=== PATIENT | male | born 1965 | race Caucasian/White ===

== ENCOUNTER → 2018-11-30 18:33 | Outpatient (CLI) | payer BC, SELFPAY ==
--- NOTE | 2018-11-30 | DI.MRI.S_ITS ---
PROCEDURE: MR KNEE LT WO CON INDICATIONS: PAIN IN LEFT KNEE TECHNIQUE: Noncontrast sagittal PD fast spin echo and T2 fast spin echo with fat saturation, sagittal 3-D FLASH with fat saturation; coronal T1 spin echo and PD fast spin echo with fat saturation, and axial PD fast spin echo with fat saturation through the knee. COMPARISON: None. FINDINGS: Image quality: Excellent. Menisci: The medial extrusion of the medial meniscus is present. Amorphous high signal intensity within the medial meniscal body and posterior horn is present, demonstrating superior and inferior articular surface extension, indicating degenerative tearing. Lateral meniscus demonstrates linear oblique high T2 signal intensity within its posterior horn, demonstrating inferior articular surface extension, indicating oblique tearing. Cruciate ligaments: The anterior cruciate ligament graft demonstrates full-thickness tearing. There is moderate T2 signal elevation within the mid and inferior posterior cruciate ligament, which demonstrates moderate thickening. Medial structures: The medial collateral ligament appears intact. Visualized portions of the pes anserinus tendons appear normal. No abnormal bursal fluid. Lateral structures: The lateral collateral ligament, long and short heads of the biceps femoris tendon appear intact. The popliteus tendon appears normal. Iliotibial band appears normal. Anterior structures: The quadriceps and patellar tendons appear intact. Patellar alignment is normal. No femoral trochlear dysplasia or ventral trochlear prominence. There is moderate edema in the infrapatellar fat pad. Bones and cartilage: No bone marrow contusions nor acute fracture. There is fragmentation of the anterior tibial tubercle. Moderate tricompartmental periarticular osteophyte formation. Surgical ligament anchors within the distal femur and proximal tibia are present. There is mild subchondral marrow edema within the weightbearing aspects of the medial femoral condyle and medial tibial plateau. There is severe diffuse articular cartilage loss overlying the weightbearing aspects of the medial femoral condyle and medial tibial plateau. Mild diffuse articular cartilage loss overlies the weightbearing aspect of the lateral femoral condyle and lateral tibial plateau. There is small knee joint effusion and a trace Arteaga's cyst. There is a 12 mm diameter intra-articular loose body within the anterior central aspect of the knee joint. A few smaller scattered intra-articular loose bodies are present. Joint space: There is physiologic knee joint fluid. No Arteaga's cyst. Normal appearing synovial plicae are incidentally noted. IMPRESSION: 1. Ruptured ACL graft. 2. Tricompartmental osteoarthritis with associated articular cartilage loss. 3. Partial-thickness posterior cruciate ligament tear. 4. Knee joint effusion and intra-articular loose bodies. 5. Medial and lateral meniscal tearing. 6. Remote Salma-Schlatter disease. Dictated by: Celestino Young M.D. on 12/01/2018 at 8:54 Approved by: Celestino Young M.D. on 12/01/2018 at 9:18
== END ==
PROVIDERS: Visit Provider Student in an Organized Health Care Education/Training Program
DX: T84.410A Breakdown (mechanical) of muscle and tendon graft, initial encounter (principal); S83.522A Sprain of posterior cruciate ligament of left knee, initial encounter; S83.282A Other tear of lateral meniscus, current injury, left knee, initial encounter; S83.242A Other tear of medial meniscus, current injury, left knee, initial encounter; M25.562 Pain in left knee; M17.12 Unilateral primary osteoarthritis, left knee; M25.462 Effusion, left knee
CPT/HCPCS: 73721

== ENCOUNTER 2020-01-11 12:19 | Emergency (ER) | payer OTHER, BC, SELFPAY ==
[2020-01-11 12:25] VITALS: BP 160/84; PULSE 97; RESP 15; TEMP 36.4; O2SAT 97; BMI 25.1
--- NOTE | 2020-01-11 12:31 | DI.US.S_ITS ---
PROCEDURE: US PERIPH VENOUS LOW EXTREM RT INDICATIONS: RULE OUT DVT TECHNIQUE: Real-time imaging, as well as color and pulse Doppler interrogation, were performed of the lower extremity deep veins from the inguinal ligament to the popliteal fossa. COMPARISON: None. FINDINGS: The common femoral, femoral and popliteal veins are normally compressible, and free of intraluminal thrombus. Color and pulse Doppler demonstrate normal phasic intraluminal flow. There is normal augmentation response to distal compression maneuver. IMPRESSION: No sonographic evidence of DVT. Dictated by: Alejo Higuera M.D. on 01/11/2020 at 13:28 Approved by: Alejo Higuera M.D. on 01/11/2020 at 13:29
[2020-01-11 14:23] VITALS: BP 122/86; PULSE 78; RESP 16; O2SAT 98
--- NOTE | 2020-01-11 14:28 | ED_ITS ---
HPI - Extremity Problem General Chief complaint: Extremity Problem,Nontraumatic Stated complaint: possible DVT, total knee replacement, sent by Time Seen by Provider: 01/11/20 14:28 Source: patient Mode of arrival: Ambulatory Limitations: no limitations History of Present Illness HPI Narrative: This is a 54 year old male who comes to the emergency department for concern for possible DVT patient states he has pain in his right calf. He had a knee replacement on December 11 he states he has been healing very nicely he has had no warmth or erythema, no pain in the knee. He has had some mild swelling in his lower extremity but mostly pain in the right calf. He denies any shortness of breath no chest pain or pressure. No fevers or chills. No nausea vomiting. He has tried oxycodone with minimal improvement on his pain. He states that with his prior knee surgery on the left it was a slower resolution and he was not as active as quickly but he did not have calf pain similar to this. Related Data Previous Rx's Medication Instructions Recorded hydroxyzine HCl 25 mg PO QID PRN #14 tab 01/11/20 Allergies Allergy/AdvReac Type Severity Reaction Status Date / Time No Known Drug Allergies Allergy Verified 01/11/20 12:25 Review of Systems Review of Systems ROS Unobtainable: All systems reviewed & are unremarkable except as noted in HPI and below Patient History Surgical History (Updated 01/11/20 @ 19:10 by Bharti Peck DO) History of bilateral knee replacement Social History Smoking Status: Unknown if ever smoked Smoking Status: Unknown if ever smoked alcohol intake frequency: 0-2 drinks per day Substance Use Type: does not use Exam Narrative Exam Narrative: GENERAL: Alert and oriented x three, thin, well-appearing male in mild distress HEENT: Head normocephalic, atraumatic, EOMI, pupils reactive, face symmetric, moist mucous membranes NECK: Supple, full range of motion CARDIOVASCULAR: Regular rate and rhythm without murmurs, rubs or gallops. RESPIRATORY: Breath sounds equal bilaterally, no wheezes rales or rhonchi. ABDOMEN: Soft, nontender. Normoactive bowel sounds all 4 quadrants. No guarding or rebound, rigidity, no mass : No CVA tenderness EXTREMITIES: Normal range of motion, no clubbing. Patient has mild swelling of the right knee in comparison to the left. All the nontender to palpation. No warmth, no erythema or other skin changes patient's incision appears to be healing well. Neurovascularly intact NEUROLOGICAL: Cranial nerves II through XII grossly intact. Moving all extremities SKIN: Warm, dry, no petechiae, no rashes or lesions. Initial Vital Signs Initial Vital Signs: Vital Signs Temperature 97.6 F 01/11/20 12:25 Pulse Rate 97 H 01/11/20 12:25 Respiratory Rate 15 01/11/20 12:25 Blood Pressure 160/84 H 01/11/20 12:25 Pulse Oximetry 97 01/11/20 12:25 Course Orders Ordered: ED Orders 01/11/20 12:31 US periph venous low extrem rt Stat Vital Signs Vital signs: Vital Signs - 8 hr 01/11/20 12:25 01/11/20 14:23 01/11/20 15:04 Temperature 97.6 F Pulse Rate 97 H 78 74 Respiratory Rate 15 16 16 Blood Pressure 160/84 H 122/86 126/89 Pulse Oximetry 97 98 97 MDM - Extremity (Nontraumatic) Imaging Data US - DVT: Radiologist's Impression: [address] [id number] ReportSigned Patient: Giovanni Chahal#: [id number]: 1965Acct:[id number]/Sex: 54 / MDate of Service: 01/11/20Loc: EDAccession Number: [id number] Procedure: US periph venous low extrem rt Ordering Provider: Bharti Moore PROCEDURE: US PERIPH VENOUS LOW EXTREM RT INDICATIONS: RULE OUT DVT TECHNIQUE: Real-time imaging, as well as color and pulse Doppler interrogation, were performed of the lower extremity deep veins from the inguinal ligament to the popliteal fossa. COMPARISON: None. FINDINGS: The common femoral, femoral and popliteal veins are normally compressible, and free of intraluminal thrombus. Color and pulse Doppler demonstrate normal phasic intraluminal flow. There is normal augmentation response to distal compression maneuver. IMPRESSION: No sonographic evidence of DVT. Dictated by: Alejo Higuera M.D. on 01/11/2020 at 13:28 Approved by: Alejo Higuera M.D. on 01/11/2020 at 13:29 MDM Narrative Medical decision making narrative: Patient has negative DVT ultrasound. He has had some calf discomfort particularly at night. He has oxycodone at home but we discussed trying some hydroxyzine and decreasing his activity. He is following with PT and has follow-up on Tuesday with Orthopedic surgery. No current signs other symptoms concerning for infection at this time. Discharge Plan Departure Patient Disposition: Home Clinical Impression: Pain of right calf Instructions: DI for Leg Pain Activity Restrictions/Additional Instructions: Follow-up with your orthopedic surgeon on Tuesday. You may try taking hydroxyzine instead of or with your pain medication for calf pain and see if this improves your symptoms. Take as prescribed as this medication can make you sleepy do not drive, perform hazardous activities or make any major decisions while taking it. Return to the ER for fevers, new redness, swelling, rapidly worsening pain, signs of infection, lightheadedness, passing out, new chest pain or shortness of breath or other new or concerning symptoms. Prescriptions: New hydroxyzine HCl 25 mg tablet 25 mg PO QID PRN (Reason: spasm) Qty: 14 RF: 0
[2020-01-11 15:04] VITALS: BP 126/89; PULSE 74; RESP 16; O2SAT 97
== END 2020-01-11 15:30 | disposition home or self-care (01) ==
PROVIDERS: Emergency Provider Emergency Medicine
DX: M79.661 Pain in right lower leg (principal); Z96.653 Presence of artificial knee joint, bilateral
CPT/HCPCS: 93971; 99283